=== PATIENT | female | born 1955 | race Caucasian/White ===

== ENCOUNTER 2019-01-05 08:33 | Inpatient (IN) | payer MEDICARE, OTHER ==
[~2019-01-05] VITALS: Ht 177.8 cm; Wt 102.6 kg
[~2019-01-05 08:33] MED LIST: ABAC300T2 PO; CIPR500T4 PO; DICL100G9 TP; HYDR200T39 PO; IBUP-734 PO; SOLI10TA2 PO; [UNRECOGNIZED DRUG - CODE] PO
[2019-01-05] MEDS ORDERED: CEFTRIAXONE 1 GM/50 ML (PMX) 50 ML IVPB STA (08:40)
[2019-01-05] MEDS ORDERED: ACETAMINOPHEN 325 MG TAB PO STA (08:40)
[2019-01-05] MEDS ORDERED: SODIUM CHLORIDE 0.9% 1L BAG IV* STA (08:58)
[2019-01-05] MEDS ORDERED: LAMI1TAB ORAL (10:14)
[2019-01-05] MEDS ORDERED: SULF-182 ORAL (10:14)
[2019-01-05] MEDS ORDERED: ACET500T98 ORAL (10:14)
[2019-01-05] MEDS ORDERED: [UNRECOGNIZED DRUG - CODE] PO (10:22)
[2019-01-05] MEDS ORDERED: FOLI-49 ORAL (10:23)
[2019-01-05] MEDS ORDERED: HYDR200T5 PO (10:23)
[2019-01-05] MEDS ORDERED: ACETAMINOPHEN 325 MG TAB PO PRN (11:30)
[2019-01-05] MEDS ORDERED: ONDANSETRON 4 MG INJ IV PRN (11:30)
--- NOTE | 2019-01-05 12:43 | ERD ---
ER Documentation Chief Complaint Chief Complaint fever , lt flank pain x 8 days , taking cipro and bactrium for uti HPI Patient is a 63-year-old female with no medical problems who presents with UTI. The patient has been on antibiotics for 3 days with Cipro and Bactrim. Her symptoms have been there for 8 days with burning with urination. She still having fevers however. Upon review of old medical records this is the patient's third visit to the ER since 2006. Her primary doctor is Dr. Ley. ROS All systems reviewed and are negative except as per history of present illness. Medications Home Meds Reported Medications Hydroxychloroquine Sulfate* (Plaquenil*) 200 Mg Tab, 200 MG PO BID, TAB 01/05/19 Folic Acid* (Folic Acid*) 1 Mg Tablet, 1 TAB ORAL DAILY 01/05/19 Abacavir* (Ziagen*) 300 Mg Tablet, 300 MG PO BID, TAB 01/05/19 Lamivudine-Zidovudine* (Lamivudine-Zidovudine*) 150-300 Mg Tablet, 1 TAB ORAL DA RANDALL 01/05/19 Sulfamethoxazole/Trimethoprim (Sulfamethoxazole-Tmp Ds Tablet) 1 Each Tablet, 1 TAB ORAL BID 01/05/19 Acetaminophen (Acetaminophen) 500 Mg Tablet, 1 TAB ORAL Q6H PRN for PAIN LEVEL 4-6 01/05/19 Ciprofloxacin Hcl* (Ciprofloxacin Hcl*) 500 Mg Tablet, 500 MG PO BID 07/31/13 Discontinued Reported Medications Ibuprofen (MOTRIN) 100 Mg/5 Ml Oral.susp, 800 MG PO TID 07/31/13 Solifenacin* (Vesicare*) 10 Mg Tablet, 10 MG PO DAILY 07/31/13 Diclofenac Sodium (Voltaren) 100 Gm Gel..gm., 100 GM TP BID 07/28/13 Abacavir* (Ziagen*) 300 Mg Tablet, 300 MG PO BID 07/28/13 Abacavir* (Abacavir*) 300 Mg Tablet, 300 MG PO BID 07/28/13 Hydroxychloroquine Sulfate* (Hydroxychloroquine Sulfate*) 200 Mg Tablet, 200 MG PO BID 07/28/13 Allergies Allergies: Coded Allergies: No Known Allergies (Verified Allergy, Unknown, 07/28/13) PMhx/Soc History of Surgery: Yes (BTL) Anesthesia Reaction: No Hx Neurological Disorder: No Hx Respiratory Disorders: No Hx Cardiac Disorders: No Hx Psychiatric Problems: No Hx Miscellaneous Medical Probl: No Hx Alcohol Use: No Hx Substance Use: No Hx Tobacco Use: No Smoking Status: Never smoker FmHx Family History: No diabetes Physical Exam Vitals Vital Signs Date Temp Pulse Resp B/P (MAP) Pulse Ox O2 O2 Flow FiO2 Time Delivery Rate 01/05/19 98.4 78 17 106/62 98 Room Air 12:21 (77) 01/05/19 101.0 09:09 01/05/19 Nasal 2 09:08 Cannula 01/05/19 101.1 96 18 131/63 98 08:37 (85) Physical Exam Const: No acute distress Head: Atraumatic Eyes: Normal Conjunctiva ENT: Normal External Ears, Nose and Mouth. Neck: Full range of motion. No meningismus. Resp: Clear to auscultation bilaterally Cardio: Regular rate and rhythm, no murmurs Abd: Soft, non tender, non distended. Normal bowel sounds Skin: No petechiae or rashes Back: No midline or flank tenderness Ext: No cyanosis, or edema Neur: Awake and alert Psych: Normal Mood and Affect Result Diagram: 01/05/19 0857 01/05/19 0957 Results 24 hrs Laboratory Tests Test 01/05/19 08:57 01/05/19 09:57 01/05/19 10:44 White Blood Count 12.6 10^3/ul Red Blood Count 2.75 10^6/ul Hemoglobin 10.6 g/dl Hematocrit 31.4 % Mean Corpuscular Volume 114.2 fl Mean Corpuscular Hemoglobin 38.5 pg Mean Corpuscular 33.8 g/dl Hemoglobin Concent Red Cell Distribution Width 13.1 % Platelet Count 362 10^3/UL Mean Platelet Volume 10.4 fl Immature Granulocytes % 1.300 % Neutrophils % 80.6 % Lymphocytes % 11.7 % Monocytes % 5.9 % Eosinophils % 0.2 % Basophils % 0.3 % Nucleated Red Blood Cells % 0.0 /100WBC Immature Granulocytes # 0.170 10^3/ul Neutrophils # 10.2 10^3/ul Lymphocytes # 1.5 10^3/ul Monocytes # 0.8 10^3/ul Eosinophils # 0.0 10^3/ul Basophils # 0.0 10^3/ul Nucleated Red Blood Cells # 0.0 10^3/ul Prothrombin Time 13.5 Sec Prothrombin Time Ratio 1.1 INR International 1.02 Normalized Ratio Activated Partial Thromboplast 34.1 Sec Time Urine Color YELLOW Urine Clarity CLEAR Urine pH 6.0 Urine Specific [place] 1.020 Urine Ketones NEGATIVE mg/dL Urine Nitrite NEGATIVE mg/dL Urine Bilirubin NEGATIVE mg/dL Urine Urobilinogen NEGATIVE mg/dL Urine Leukocyte Esterase NEGATIVE [place]/ul Urine Microscopic RBC 3 /HPF Urine Microscopic WBC 3 /HPF Urine Squamous Epithelial Cells FEW /HPF Urine Bacteria FEW /HPF Urine Mucus FEW /HPF Urine Hemoglobin NEGATIVE mg/dL Urine Glucose NEGATIVE mg/dL Urine Total Protein NEGATIVE mg/dl Sodium Level 135 mmol/L Potassium Level 4.6 mmol/L Chloride Level 103 mmol/L Carbon Dioxide Level 27 mmol/L Anion Gap 5 Blood Urea Nitrogen 10 mg/dl Creatinine 0.64 mg/dl Est Glomerular Filtrat > 60 mL/min Rate mL/min Glucose Level 105 mg/dl Lactic Acid Level 1.2 mmol/L 1.1 mmol/L Calcium Level 9.2 mg/dl Total Bilirubin 0.3 mg/dl Direct Bilirubin 0.00 mg/dl Indirect Bilirubin 0.3 mg/dl Aspartate Amino Transf (AST/SGOT) 40 IU/L Alanine 18 IU/L Aminotransferase (ALT/SGPT) Alkaline Phosphatase 252 IU/L Troponin I < 0.012 ng/ml Total Protein 7.9 g/dl Albumin 3.3 g/dl Globulin 4.60 g/dl Albumin/Globulin Ratio 0.71 Current Medications Medications Dose Sig/Terrance Start Time Status Last (Trade) Ordered Route PRN Stop Time Admin Dose Reason Admin 650 mg ONCE STAT 01/05/19 DC 01/05/19 Acetaminophen PO 08:40 01/05/19 09:09 (Tylenol 08:42 Tab) Ceftriaxone 50 ml @ ONCE STAT 01/05/19 DC 01/05/19 Sodium 100 mls/hr IVPB 08:40 01/05/19 09:10 09:09 Sodium 1,780 ml BOLUS OVER 2 01/05/19 DC 01/05/19 Chloride HOURS STAT 08:58 01/05/19 09:10 (NS) IV* 08:59 Ondansetron 4 mg BRIDGE ORDER 01/05/19 HCl (Zofran PRN IV 11:30 01/06/19 Inj) NAUSEA/VOMITI 11:29 NG 650 mg ER BRIDGE 01/05/19 Acetaminophen PRN PO 11:30 01/06/19 (Tylenol .MILD PAIN 11:29 Tab) 1-3 OR TEMP Procedures/MDM EKG read by me: Rate/Rhythm: Regular rate and rhythm at a normal rate Intervals: Normal Impression: No evidence of ischemia or arrhythmia Chest x-ray read by radiology. Sepsis Documentation: Patient's infectious symptoms have not stabilized and the patient is at risk of rapid decompensation. The patient will be admitted for careful hydration, antibiotic therapy, and infectious source control. SEVERE SEPSIS CRITERIA: Infectious source: Cystitis End organ damage indicated by: No endorgan damage SEPSIS MANAGEMENT Time of recognition of sepsis: 8:57 AM Time of recognition of severe sepsis: No severe sepsis at this time. Time of recognition of septic shock: No septic shock at this time. 3 HOUR BUNDLE Blood cultures x 2 before broad-spectrum antibiotics: Yes 30 ml/kg NS bolus please note ideal body weight was used as the patient has a BMI of 36. Initial lactate 1.2 Repeat lactate 1.1 SEPTIC SHOCK ASSESSMENT: No lactic acid > 4.0 No persistent hypotension (SBP < 90 or 40 mmHg drop, MAP < 65) despite 30 mL/kg IV fluid bolus VOLUME REASSESSMENT FOR SEPTIC SHOCK: No septic shock at this time PERSISTENT HYPOTENSION TREATMENT: Comfort care no Central line not Required Vasopressor started not required I considered further perfusion assessment with CVP measurement, SCVO2, bedside ultrasound volume assessment, passive leg raise, trial of further fluid bolus. And proceeded with 30 ml/kg fluid bolus of NSS, broad spectrum antibiotics, and admission. CRITICAL CARE Critical care time 35 minutes Emergent fluid management while maintaining close respiratory support. Provisi on of immediate and broad-spectrum antibiotic therapy. Simultaneous assessment for possible sources in order to direct targeted therapy. Consideration for invasive and chemical support to prevent cardiopulmonary collapse. Critical care time is independent of procedures performed. Departure Diagnosis: Primary Impression: Sepsis Sepsis type: sepsis due to unspecified organism Qualified Codes: A41.9 - Sepsis, unspecified organism Additional Impressions: Flank pain Cystitis Condition: ENMA Sanders MD Jan 05, 2019 12:43
[2019-01-05 12:55] VITALS: Ht 177.8 cm; Wt 102.6 kg
[2019-01-05 12:56] VITALS: BP 118/56; PULSE 79; RESP 18
[2019-01-05] MEDS ORDERED: ACETAMINOPHEN 500 MG TAB PO PRN (13:30)
--- NOTE | 2019-01-05 15:25 | HP ---
DATE OF ADMISSION: 01/05/2019 CHIEF COMPLAINT: Fever. HISTORY OF PRESENT ILLNESS: This is a 63-year-old female with a past medical history of arthritis wh o was being treated for an outpatient setting by her primary care physician, Dr. Ley, for UTI. The patient states she was diagnosed with UTI several days ago and was given 2 antibiotics, Bactrim and Cipro. The patient states, however, she continued to have ongoing fevers as well as a burning sensat ion. As a result, she came into [facility] Emergency Room for evaluation. Upon arrival, th e patient had a chest x-ray which showed no acute finding. Laboratory data was drawn, which showed e levated white count of 12.6. Urinalysis showed few bacteria, but no significant pyuria. The patient was given ceftriaxone and admitted to med/surg for evaluation. Upon my evaluation of the patient at this time, she denies any nausea, vomiting, any abdominal pain, any hemoptysis, hematemesis. No diarrhea. PAST MEDICAL HISTORY: Per patient, history of arthritis. The patient denies any history of CVA, hyp ertension. PAST SURGICAL HISTORY: Status post hysterectomy. FAMILY HISTORY: No family history of kidney disease. SOCIAL HISTORY: Does not drink, smoke or do drugs. MEDICATIONS: Have been reviewed. REVIEW OF SYSTEMS: A 14-point review of systems was conducted. Pertinent positives stated in HPI, o therwise negative. PHYSICAL EXAMINATION: VITAL SIGNS: Blood pressure is 118/56, respiration 18, pulse 79, temperature 101.1. HEENT: Head is normocephalic. NECK: Supple. HEART: Regular rate. LUNGS: Show diminished breath sounds at base. ABDOMEN: Soft, nontender to palpation without rebound or guarding. EXTREMITIES: Negative for clubbing, cyanosis. No edema. DERMATOLOGIC: No rashes. MUSCULOSKELETAL: No joint effusions. NEUROLOGIC: No focal deficits. LABORATORY DATA: Show BMP within normal limits. White count 12.6, hemoglobin 10.6, platelet count i s 362. Urinalysis was reviewed. ASSESSMENT AND PLAN: This is a 63-year-old female who presents with: 1. Fever. Etiology is presumed to be secondary to urinary tract infection. The patient's repeat ur inalysis, however, does not show any significant pyuria. Chest x-ray shows no active infiltrate. Pl an at this point is to get infectious disease consult for evaluation. We will check a procalcitonin level. We will check blood cultures and urine cultures. Continue current antibiotics and monitor cl osely. 2. History of arthritis. Continue antiinflammatory medications and monitor. 3. Anemia. We will check iron panel and ferritin level. 4. Gastrointestinal and deep venous thrombosis prophylaxis. The patient will be placed on Pepcid an d Lovenox. 5. General debility. We will place a physical therapy consult for evaluation. Please note, I spent an additional 30 minutes of [id number] time with the patient, discussing advan keila directives and code status. The patient is full code. Dictated By: CYNTHIA COLLINS/KERRI Conf#: [id number] DID#: [id number]
--- NOTE | 2019-01-05 18:28 | CONS ---
DATE OF ADMISSION: 01/05/2019 DATE OF CONSULTATION: 01/05/2019 TYPE OF CONSULTATION: Infectious disease. REASON FOR CONSULTATION: Antibiotic management. HISTORY OF PRESENT ILLNESS: Sushil Mckeon is a 63-year-old black female well known to me for many years who is HIV positive. She presented to the emergency room today with fever. Her past problems include: 1. HIV. 2. Arthritis, possibly rheumatoid. She is being cared for by the [facility] and she states that she was diagnosed with urinary trac t infection several days ago and was given Cipro and Bactrim. She continued to have ongoing fevers a s well as burning on urination. She came to the emergency room for evaluation. Her chest x-ray show ed no acute findings. Her white count on admission was 12.6. Urinalysis showed few bacteria. She w as started on ceftriaxone and admitted. Past problems include status post hysterectomy and arthritis as well as HIV. FAMILY HISTORY: Noncontributory. SOCIAL HISTORY: She does not smoke, drink or abuse drugs. ALLERGIES: NONE TO PENICILLIN, SULFA OR FOODS. MEDICATIONS: Per chart. REVIEW OF SYSTEMS: As per HPI. PHYSICAL EXAMINATION: GENERAL: She is a well-developed, well-nourished, obese black female who is alert, responsive, frien dly, in no acute distress. VITAL SIGNS: Stable. T-max of 101.1. SKIN: Without generalized rash. HEENT: Within normal limits. NECK: Supple. LYMPH NODES: None palpable. CHEST: Decreased breath sounds at the bases. HEART: Without murmur or gallop. ABDOMEN: Soft, nontender without organosplenomegaly or masses. EXTREMITIES: Without cyanosis, clubbing or edema. RECTAL AND GENITAL: Deferred. NEUROLOGICAL: No focal neurological abnormality. HOSPITAL COURSE: Her white count is 12.6. Her H and H is 10.6 and 31.4, platelet count of 362,000 w ith 81% neutrophils. BUN and creatinine is 10/0.64. Her alkaline phosphatase is elevated at 252. U rine is negative for leukocyte esterase. She has 3 white cells per high powered field. The patient was started on ceftriaxone at least in the emergency room. We are going to resume her Combivir and a bacavir which she has been on for quite a while. Her CD4 count when I saw her in 08/2018 was 645. H er viral load was up to 59 and we are going to do a genotype to rule out any mutations. However, cur rently her HIV is under good control, the source of her infectious disease issues. Her chest x-ray i s clear. Her urine is nondescript with only 3 white cells per high powered field; however, she had d ysuria at home and she probably has urinary tract infection. She was on Bactrim and Cipro. She was started on ceftriaxone in the emergency room. A procalcitonin level was done, blood cultures and uri ne cultures and I think we will keep her off antibiotics at this point. I will dictate my findings t o Dr. Ley and Dr. Astorga. Dictated By: BILL PAYAN MD, JD/KERRI Conf#: [id number] DIANA#: [id number] CC: CYNTHIA ASTORGA DO;*EndCC*
[2019-01-05 20:00] VITALS: BP 132/57; PULSE 94; RESP 17
[2019-01-05] MEDS: LAMIVUDINE/ZIDOVUDINE TAB PO SCH (20:55)
[2019-01-05] MEDS: FAMOTIDINE 20 MG TAB PO SCH (20:55)
[2019-01-05] MEDS: ABACAVIR 300 MG TAB PO SCH (20:58)
[2019-01-06 02:44] VITALS: BP 143/65; PULSE 87; RESP 19
[2019-01-06 08:00] VITALS: BP 110/58; PULSE 76; RESP 18
[2019-01-06] MEDS: ENOXAPARIN 40 MG/0.4 ML SYG SC SCH (09:00)
[2019-01-06] MEDS: LAMIVUDINE/ZIDOVUDINE TAB PO SCH ×2 (09:06→20:10)
[2019-01-06] MEDS: FAMOTIDINE 20 MG TAB PO SCH ×2 (09:07→20:10)
[2019-01-06] MEDS: CEFTRIAXONE 1 GM/50 ML (PMX) 50 ML IVPB SCH (09:57)
--- NOTE | 2019-01-06 10:01 | PN ---
DATE: 01/06/2019 SUBJECTIVE: The patient is stable, afebrile overnight. No other events noted. OBJECTIVE: VITAL SIGNS: Blood pressure is 110/58, pulse 76, respirations 18, temperature 99.9. HEENT: Head is normocephalic. NECK: Supple. HEART: Regular rate. LUNGS: Show diminished breath sounds at the base. ABDOMEN: Soft, nontender to palpation without rebound or guarding. EXTREMITIES: Negative for clubbing, cyanosis, no edema. DERMATOLOGIC: No rashes. MUSCULOSKELETAL: No joint effusion. NEUROLOGIC: No change in exam. MEDICATIONS: Reviewed. LABORATORY DATA: From 01/06/2019 was reviewed. The patient's cultures are pending. ASSESSMENT AND PLAN: 1. Fever, etiology is unknown, possible urinary tract infection. The patient has been seen by Infec tious Disease. Appreciate their recommendations and help with management. Cultures are pending. Th e patient is currently off antibiotic therapy. We will monitor closely. Follow up with ID for recom mendations. 2. History of arthritis. Continue current medical management. 3. HIV. Continue antiviral therapy. 4. Anemia. Monitor hemoglobin and hematocrit levels. 5. Gastrointestinal and deep vein thrombosis prophylaxis. Continue proton pump inhibitor and Loveno x. 6. General debility. Continue physical therapy. Dictated By: CYNTHIA ASTORGA DO NR/NTS Conf#: [id number] DID#: [id number] CC: CYNTHIA ASTORGA DO;*EndCC*
[2019-01-06] MEDS: ABACAVIR 300 MG TAB PO SCH ×2 (10:47→20:10)
[2019-01-06] MEDS: HYDROXYCHLOROQUINE 200 MG TAB PO SCH ×2 (13:05→20:10)
[2019-01-06 14:00] VITALS: BP 120/52; PULSE 82; RESP 18
--- NOTE | 2019-01-06 15:12 | CONS ---
Assessment/Plan Assessment/Plan Hospital Course (Demo Recall) Patient is alert feels good looks comfortable still with low-grade fevers. No dysuria no hematuria, no nausea vomiting diarrhea. T-max on admission yesterday 101.1 T-current 98.8. WBC 12 H&H 10 and 30.2 platelets 348. Neutrophils 78.4. BUN 9 creatinine 0.61 Microbiology: Blood cultures remain negative influenza swab negative, urine culture consistent with contaminant Chest x-ray on admission revealed no evidence of an acute cardiopulmonary process Antimicrobials: Patient is on IV Rocephin she is also getting HIV medications Physical examination: This is a morbidly obese well-developed elderly woman who is alert in no distress. Head atraumatic normocephalic sclera nonicteric. Bugle mucosa pink and moist. Neck is supple chest rise symmetrical. Breath sounds clear. Heart: S1-S2. Abdomen soft bowel sounds present. Extremities without cyanosis. Assessment: 1. Ongoing fevers of unknown etiology 2. HIV disease 3. Morbid obesity Plan: Patient is clinically stable we will will order CD4 count and 2D echo, repeat urine cultures, await for pro calcitonin level. She may require WBC labeled nuclear scan Consultation Date/Type/Reason Admit Date/Time Jan 05, 2019 at 11:20 Initial Consult Date Type of Consult id Date/Time of Note DATE: 01/06/19 TIME: 15:12 Exam/Review of Systems Exam Vitals Vital Signs Date Temp Pulse Resp B/P (MAP) Pulse Ox O2 O2 Flow FiO2 Time Delivery Rate 01/06/19 98.8 82 18 120/52 98 14:00 (74) 01/05/19 Room Air 12:56 01/05/19 2 09:08 Intake and Output 01/05/19 01/05/19 01/06/19 1414:59 22:59 06:59 IntakeIntake Total 400 ml BalanceBalance 400 ml Results Result Diagram: 01/06/19 0646 01/06/19 0646 Results 24hrs Laboratory Tests Test 01/06/19 06:46 White Blood Count 12.0 H Red Blood Count 2.59 L Hemoglobin 10.0 L Hematocrit 30.2 L Mean Corpuscular Volume 116.6 H Mean Corpuscular Hemoglobin 38.6 H Mean Corpuscular Hemoglobin Concent 33.1 Red Cell Distribution Width 13.3 Platelet Count 348 Mean Platelet Volume 10.4 Immature Granulocytes % 1.300 H Neutrophils % 78.4 H Lymphocytes % 12.5 L Monocytes % 7.0 Eosinophils % 0.4 Basophils % 0.4 Nucleated Red Blood Cells % 0.0 Immature Granulocytes # 0.150 H Neutrophils # 9.4 H Lymphocytes # 1.5 Monocytes # 0.8 Eosinophils # 0.1 Basophils # 0.1 Nucleated Red Blood Cells # 0.0 Sodium Level 138 Potassium Level 4.4 Chloride Level 101 Carbon Dioxide Level 28 Anion Gap 9 Blood Urea Nitrogen 9 Creatinine 0.61 Est Glomerular Filtrat Rate mL/min > 60 Glucose Level 99 Calcium Level 9.8 Phosphorus Level 4.2 Magnesium Level 2.2 Medications Medication Current Medications Acetaminophen (Tylenol Tab) 650 mg Q6H PRN PO PAIN LEVEL 4-6; Start 01/05/19 at 13:30 Famotidine (Pepcid) 20 mg BID PO Last administered on 01/06/19at 09:07; Admin Dose 20 MG; Start 01/05/19 at 21:00 Enoxaparin Sodium (Lovenox) 40 mg DAILY SC ; Start 01/06/19 at 09:00 Abacavir Sulfate (Ziagen) 300 mg BID PO Last administered on 01/06/19at 10:47; Admin Dose 300 MG; Start 01/05/19 at 21:00 Lamivudine/ Zidovudine (Combivir) 1 tab BID PO Last administered on 01/06/19at 09:06; Admin Dose 1 TAB; Start 01/05/19 at 21:00 Ceftriaxone Sodium 50 ml @ 100 mls/hr Q24H IVPB Last administered on 01/06/19at 09:57; Admin Dose 100 MLS/HR; Start 01/06/19 at 09:30 Hydroxychloroquine Sulfate (Plaquenil) 200 mg BID PO Last administered on 01/06/19at 13:05; Admin Dose 200 MG; Start 01/06/19 at 13:00 BRENDA LEE NP Jan 06, 2019 15:12
[2019-01-06 19:49] VITALS: BP 136/63; PULSE 90; RESP 18
[2019-01-07 00:10] VITALS: BP 142/63; PULSE 90; RESP 18
[2019-01-07 02:00] VITALS: BP 138/66; PULSE 81; RESP 17
[2019-01-07 08:00] VITALS: BP 120/56; PULSE 86; RESP 20
[2019-01-07] MEDS: ENOXAPARIN 40 MG/0.4 ML SYG SC SCH (09:00)
[2019-01-07] MEDS: FAMOTIDINE 20 MG TAB PO SCH ×2 (10:32→20:47)
[2019-01-07] MEDS: CEFTRIAXONE 1 GM/50 ML (PMX) 50 ML IVPB SCH (10:32)
[2019-01-07] MEDS: HYDROXYCHLOROQUINE 200 MG TAB PO SCH ×2 (10:32→20:47)
[2019-01-07] MEDS: LAMIVUDINE/ZIDOVUDINE TAB PO SCH ×2 (10:32→20:47)
[2019-01-07] MEDS: ABACAVIR 300 MG TAB PO SCH ×2 (11:37→20:47)
--- NOTE | 2019-01-07 13:38 | PN ---
DATE: 01/07/2019 SUBJECTIVE: The patient is stable. No fever overnight. No nausea. No vomiting. OBJECTIVE: VITAL SIGNS: Blood pressure is 120/56, respirations 20, pulse 86, temperature 98.6. HEENT: Head is normocephalic. NECK: Supple. HEART: Regular rate. LUNGS: Show diminished breath sounds at the base. ABDOMEN: Soft, nontender to palpation without rebound or guarding. EXTREMITIES: Negative for clubbing, cyanosis. No edema. DERMATOLOGIC: No rashes. MUSCULOSKELETAL: No joint effusion. NEUROLOGIC: No change in exam. MEDICATIONS: Have been reviewed. LABORATORY DATA: Have been reviewed. Cultures have been reviewed. ASSESSMENT AND PLAN: 1. Fever, unknown etiology. The patient's workup is ongoing per infectious disease. A 2D echo is p ending. Cultures have been reviewed and negative to date. Procalcitonin levels are pending. We bina l also check sed rate and CRP. The patient may require nuclear scan. Continue to monitor. Follow u p with infectious disease for evaluation. 2. Rheumatoid arthritis. Continue Plaquenil. 3. Human immunodeficiency virus. Continue antibiotic therapy per infectious disease. CD4 count is pending. 4. Anemia. Monitor hemoglobin and hematocrit levels. 5. Gastrointestinal and deep venous thrombosis prophylaxis. Continue PPI and Lovenox. 6. General debility. Continue physical therapy. Dictated By: CYNTHIA COLLINS/KERRI Conf#: [id number] DID#: [id number]
[2019-01-07 14:00] VITALS: BP 129/57; PULSE 64; RESP 18
--- NOTE | 2019-01-07 14:11 | CONS ---
Assessment/Plan Assessment/Plan Hospital Course (Demo Recall) Patient is alert and feels good had been afebrile since yesterday she is on Rocephin WBC went down to 10.5 platelets 434 neutrophils 75.3. CD4 476. BUN 9 creatinine 0.61 Microbiology: Blood cultures remain negative influenza swab negative, urine cul ture consistent with contaminant Chest x-ray on admission revealed no evidence of an acute cardiopulmonary process Antimicrobials: Patient is on IV Rocephin she is also getting HIV medications Physical examination: This is a morbidly obese well-developed elderly woman who is alert in no distress. Head atraumatic normocephalic sclera nonicteric. Bugle mucosa pink and moist. Neck is supple chest rise symmetrical. Breath sounds clear. Heart: S1-S2. Abdomen soft bowel sounds present. Extremities without cyanosis. Assessment: 1. Febrile illness with systemic inflammatory response syndrome 2. HIV disease, well controlled 3. Morbid obesity Plan: Remains stable, fevers resolving, continue present care antibiotics HAART Consultation Date/Type/Reason Admit Date/Time Jan 05, 2019 at 11:20 Initial Consult Date Type of Consult id Date/Time of Note DATE: 01/07/19 TIME: 14:10 Exam/Review of Systems Exam Vitals Vital Signs Date Temp Pulse Resp B/P (MAP) Pulse Ox O2 O2 Flow FiO2 Time Delivery Rate 01/07/19 98.6 86 20 120/56 96 08:00 (77) 01/05/19 Room Air 12:56 01/05/19 2 09:08 Intake and Output 01/06/19 01/06/19 01/07/19 1515:00 23:00 07:00 IntakeIntake Total 730 ml 400 ml BalanceBalance 730 ml 400 ml Results Result Diagram: 01/07/19 0616 01/06/19 0646 Results 24hrs Laboratory Tests Test 01/07/19 06:16 White Blood Count 10.5 Red Blood Count 2.74 L Hemoglobin 10.6 L Hematocrit 31.6 L Mean Corpuscular Volume 115.3 H Mean Corpuscular Hemoglobin 38.7 H Mean Corpuscular Hemoglobin Concent 33.5 Red Cell Distribution Width 12.9 Platelet Count 434 #H Mean Platelet Volume 9.6 Immature Granulocytes % 1.000 H Neutrophils % 75.3 Lymphocytes % 15.9 Monocytes % 6.4 Eosinophils % 1.0 Basophils % 0.4 Nucleated Red Blood Cells % 0.0 Immature Granulocytes # 0.110 H Neutrophils # 7.9 H Lymphocytes # 1.7 Monocytes # 0.7 Eosinophils # 0.1 Basophils # 0.0 Nucleated Red Blood Cells # 0.0 Medications Medication Current Medications Acetaminophen (Tylenol Tab) 650 mg Q6H PRN PO PAIN LEVEL 4-6; Start 01/05/19 at 13:30 Famotidine (Pepcid) 20 mg BID PO Last administered on 01/07/19 10:32; Admin Dose 20 MG; Start 01/05/19 at 21:00 Enoxaparin Sodium (Lovenox) 40 mg DAILY SC ; Start 01/06/19 at 09:00 Abacavir Sulfate (Ziagen) 300 mg BID PO Last administered on 01/07/19 11:37; Ad min Dose 300 MG; Start 01/05/19 at 21:00 Lamivudine/ Zidovudine (Combivir) 1 tab BID PO Last administered on 01/07/19 10:32; Admin Dose 1 TAB; Start 01/05/19 at 21:00 Ceftriaxone Sodium 50 ml @ 100 mls/hr Q24H IVPB Last administered on 01/07/19 10:32; Admin Dose 100 MLS/HR; Start 01/06/19 at 09:30 Hydroxychloroquine Sulfate (Plaquenil) 200 mg BID PO Last administered on 01/07/19 10:32; Admin Dose 200 MG; Start 01/06/19 at 13:00 BRENDA LEE NP Jan 07, 2019 14:11
[2019-01-07 20:00] VITALS: BP 128/60; PULSE 84; RESP 18
[2019-01-08 02:00] VITALS: BP 105/54; PULSE 66; RESP 18
[2019-01-08 08:21] VITALS: BP 118/53; PULSE 83; RESP 18
[2019-01-08] MEDS: FAMOTIDINE 20 MG TAB PO SCH (08:38)
[2019-01-08] MEDS: HYDROXYCHLOROQUINE 200 MG TAB PO SCH (08:38)
[2019-01-08] MEDS: LAMIVUDINE/ZIDOVUDINE TAB PO SCH (08:38)
[2019-01-08] MEDS: ABACAVIR 300 MG TAB PO SCH (08:38)
[2019-01-08] MEDS: ENOXAPARIN 40 MG/0.4 ML SYG SC SCH (08:39)
--- NOTE | 2019-01-08 08:45 | PN ---
DATE: 01/08/2019 SUBJECTIVE: The patient is stable, no events overnight. The patient is feeling better. OBJECTIVE: VITAL SIGNS: Blood pressure is 118/53, pulse 83, respirations 18, temperature 98.0. HEENT: Head is normocephalic. NECK: Supple. HEART: Regular rate. LUNGS: Show diminished breath sounds at the base. ABDOMEN: Soft, nontender to palpation without rebound or guarding. EXTREMITIES: Negative for clubbing, cyanosis, no edema. DERMATOLOGIC: No rashes. MUSCULOSKELETAL: No joint effusion. NEUROLOGIC: No change in exam. MEDICATIONS: Reviewed. LABORATORY DATA: Has been reviewed. ASSESSMENT AND PLAN: 1. Fever, etiology is unknown. Workup is ongoing per infectious disease. The patient is status pos t 2D echo; results are pending. Patient's cultures have been negative to date. Continue antibiotic therapy. 2. Rheumatoid arthritis. Continue Plaquenil. 3. HIV. Continue antiviral therapy. 4. Anemia. Continue to monitor hemoglobin and hematocrit levels. 5. General debility. Continue physical therapy. 6. Gastrointestinal and deep venous thrombosis prophylaxis. Continue proton pump inhibitor and Love nox. Dictated By: CYNTHIA ASTORGA DO NR/NTS Conf#: [id number] DID#: [id number] CC: CYNTHIA ASTORGA DO;*EndCC*
[2019-01-08] MEDS: CEFTRIAXONE 1 GM/50 ML (PMX) 50 ML IVPB SCH (09:14)
--- NOTE | 2019-01-08 12:32 | CONS ---
Assessment/Plan Assessment/Plan Hospital Course (Demo Recall) No fevers for 48 hrs, looks comfortable Microbiology: Blood cultures remain negative influenza swab negative, urine culture consistent with contaminant Chest x-ray on admission revealed no evidence of an acute cardiopulmonary process Antimicrobials: Patient is on IV Rocephin she is also getting HIV medications Physical examination: This is a morbidly obese well-developed elderly woman who is alert in no distress. Head atraumatic normocephalic sclera nonicteric. Bugle mucosa pink and moist. Neck is supple chest rise symmetrical. Breath sounds clear. Heart: S1-S2. Abdomen soft bowel sounds present. Extremities without cyanosis. Assessment: 1. Febrile illness with systemic inflammatory response syndrome 2. HIV disease, well controlled 3. Morbid obesity Plan: Remains stable, ok dc off abx Consultation Date/Type/Reason Admit Date/Time Jan 05, 2019 at 11:20 Initial Consult Date Type of Consult id Date/Time of Note DATE: 01/08/19 TIME: 12:31 Exam/Review of Systems Exam Vitals Vital Signs Date Temp Pulse Resp B/P (MAP) Pulse Ox O2 O2 Flow FiO2 Time Delivery Rate 01/08/19 98.0 83 18 118/53 96 08:21 (74) 01/05/19 Room Air 12:56 01/05/19 2 09:08 Intake and Output 01/07/19 01/07/19 01/08/19 1515:00 23:00 07:00 IntakeIntake Total 400 ml 50 ml BalanceBalance 400 ml 50 ml Results Result Diagram: 01/07/19 0616 01/06/19 0646 Medications Medication Current Medications Acetaminophen (Tylenol Tab) 650 mg Q6H PRN PO PAIN LEVEL 4-6; Start 01/05/19 at 13:30 Famotidine (Pepcid) 20 mg BID PO Last administered on 01/08/19at 08:38; Admin Dose 20 MG; Start 01/05/19 at 21:00 Enoxaparin Sodium (Lovenox) 40 mg DAILY SC ; Start 01/06/19 at 09:00 Abacavir Sulfate (Ziagen) 300 mg BID PO Last administered on 01/08/19at 08:38; Admin Dose 300 MG; Start 01/05/19 at 21:00 Lamivudine/ Zidovudine (Combivir) 1 tab BID PO Last administered on 01/08/19at 08:38; Admin Dose 1 TAB; Start 01/05/19 at 21:00 Ceftriaxone Sodium 50 ml @ 100 mls/hr Q24H IVPB Last administered on 01/08/19 09:14; Admin Dose 100 MLS/HR; Start 01/06/19 at 09:30 Hydroxychloroquine Sulfate (Plaquenil) 200 mg BID PO Last administered on 9at 08:38; Admin Dose 200 MG; Start 01/06/19 at 13:00 BRENDA LEE NP Jan 08, 2019 12:32
[2019-01-08 13:51] VITALS: BP 120/57; PULSE 80; RESP 19
--- NOTE | 2019-01-08 16:28 | RADRPT ---
Echocardiogram Report Patient Name: Teodoro ONTIVEROS ID: [id number] : 1955 (63y 6m)Study Date: 01/07/2019 7:21:55 AM Gender: FAccession #: [id number] Tech: LE Location: Ref.Physician: BRENDA LEE Height(Cm): BSA: Weight(Kg): Quality: GoodAccount #: Procedures: Echocardiographic Report: Transthoracic echocardiogram with complete 2D, M-Mode, and doppler examination. Indications: R/O Endocarditis. Measurements: 2D/M Mode Doppler Measurement Value Normal Range Measurement Value Normal Range IVS/LVPW 2D 1.0 ratio SUMANTH Vmax 2.4 [ 2.0 - 4.0 ] cm2 LVOT Diam 2.0 [ 2.1 - 2.5 ] cm AV Mean Dillon 1.1 [ 70.0 - 90.0 ] cm/sec LVOT Area 3.1 cm2 AV Mean PG 5.0 [ 2.0 - 4.0 ] mmHg AV Peak Dillon 1.5 [ 100.0 - 170.0 ] cm/sec AV Peak PG 9.0 [ 2.0 - 9.0 ] mmHg AV VTI 30.0 cm LVOT Peak Dillon 1.1 [ 70.0 - 110.0 ] cm/sec LVOT Peak PG 5.0 [ 2.0 - 6.0 ] mmHg MV E Peak Dillon 0.7 [ 60.0 - 130.0 ] cm/sec MV A Peak Dillon 1.0 [ 100.0 - 120.0 ] cm/sec MV E/A 0.7 [ 0.8 - 1.5 ] ratio MV Decel Time 257 [ 104 - 258 ] msec Lat E` Dillon 0.1 [ 10.0 - 15.0 ] cm/sec Med E` Dillon 0.1 cm/sec MV E/A 0.7 [ 0.8 - 1.5 ] ratio TR Peak Dillon 3.0 [ 100.0 - 280.0 ] cm/sec TR Peak PG 37.0 mmHg PV Peak Dillon 0.9 [ 40.0 - 80.0 ] cm/sec PV Peak PG 3.0 mmHg Findings: Left Ventricle: Normal left ventricular systolic function. Normal left ventricular cavity size. Mild concentric left ventricular hypertrophy. Ejection fraction is visually estimated at 60 %. Tissue Doppler/Mitral Doppler indices are consistent with impaired relaxation (Stage I diastolic dysfunction). Right Ventricle: Normal right ventricular size. Normal right ventricular systolic function. Left Atrium: There is mild enlargement of left atrium. Right Atrium: The right atrium is normal in size. Mitral Valve: Mild mitral annular calcification. Trace mitral regurgitation. Aortic Valve: Normal appearance of the aortic valve. No significant aortic stenosis or insufficiency. Tricuspid Valve: Normal appearance of the tricuspid valve. Estimated peak PA systolic pressure 35 mmHg. There is mild tricuspid regurgitation. Pulmonic Valve: Normal pulmonic valve appearance. There is trace pulmonic regurgitation. Pericardium: Normal pericardium with no significant pericardial effusion. Aorta: Normal aortic root. IVC: Normal size and normal respiratory collapse consistent with normal right atrial pressure. Conclusions: Normal left ventricular systolic function. Normal left ventricular cavity size. Mild concentric left ventricular hypertrophy. Ejection fraction is visually estimated at 60 %. Tissue Doppler/Mitral Doppler indices are consistent with impaired relaxation (Stage I diastolic dysfunction). Normal right ventricular size. Normal right ventricular systolic function. There is mild enlargement of left atrium. The right atrium is normal in size. Estimated peak PA systolic pressure 35 mmHg. There is mild tricuspid regurgitation. No significant valvular stenosis or regurgitation seen of remaining visualized valves. Normal pericardium with no significant pericardial effusion. Electronically Signed By: Travis Merchant 2019-01-08 16:28:14 PDT
== END 2019-01-08 14:55 | disposition home or self-care (01) | DRG 975 ==
LOC: E/R 08:33 → 5EC 11:20 → PP2 01-06 23:55
PROVIDERS: ADMIT Internal Medicine; ATTEND Internal Medicine
DX: B20 Human immunodeficiency virus [HIV] disease (principal); A41.9 Sepsis, unspecified organism; N39.0 Urinary tract infection, site not specified; D64.9 Anemia, unspecified; R53.81 Other malaise; M19.90 Unspecified osteoarthritis, unspecified site; Z68.32 Body mass index [BMI] 32.0-32.9, adult; E66.01 Morbid (severe) obesity due to excess calories
CPT/HCPCS: 36415; 71045; 80048; 80053; 81003; 83605; 83735; 84100; 84145; 84484; 85025; 85610; 85730; 86360; 87086; 87400; 93005; 93306; 96374; J0696; J1650; J7030

== ENCOUNTER 2019-03-06 13:06 | Emergency (ER) | payer MEDICARE, OTHER ==
[~2019-03-06] VITALS: Ht 180.3 cm; Wt 99.2 kg
[~2019-03-06 13:06] MED LIST changes: -ABAC300T2 PO; +ACET500T98 ORAL; -CIPR500T4 PO; -DICL100G9 TP; +FOLI-49 ORAL; -HYDR200T39 PO; +HYDR200T5 PO; -IBUP-734 PO; +LAMI1TAB ORAL; -SOLI10TA2 PO
[2019-03-06 13:15] VITALS: Ht 180.3 cm; Wt 99.2 kg
--- NOTE | 2019-03-06 13:46 | ERD ---
ER Documentation Chief Complaint Chief Complaint Flank pain with fever started today HPI 63-year-old female with a history of HIV and rheumatoid arthritis presenting with left flank pain that started today. The pain is mild, aching, nonradiating, without associated hematuria or dysuria. She states that she felt somewhat feverish today but denies any documented fevers. No nausea or vomiting. No chest pain or shortness of breath. She was hospitalized a few weeks ago for a UTI that was severe and she is afraid that she has a UTI again. ROS All systems reviewed and are negative except as per history of present illness. Medications Home Meds Reported Medications Hydroxychloroquine Sulfate* (Plaquenil*) 200 Mg Tab, 200 MG PO BID, TAB 01/05/19 Folic Acid* (Folic Acid*) 1 Mg Tablet, 1 TAB ORAL DAILY 01/05/19 Abacavir* (Ziagen*) 300 Mg Tablet, 300 MG PO BID, TAB 01/05/19 Lamivudine-Zidovudine* (Lamivudine-Zidovudine*) 150-300 Mg Tablet, 1 TAB ORAL DAILY 01/05/19 Acetaminophen (Acetaminophen) 500 Mg Tablet, 1 TAB ORAL Q6H PRN for PAIN LEVEL 4-6 01/05/19 Allergies Allergies: Coded Allergies: No Known Allergies (Verified Allergy, Unknown, 03/06/19) PMhx/Soc History of Surgery: Yes (hestrctoectomy) Anesthesia Reaction: No Hx Neurological Disorder: No Hx Respiratory Disorders: No Hx Cardiac Disorders: No Hx Psychiatric Problems: No Hx Miscellaneous Medical Probl: Yes (HIV, rheumatoid arthritis, UTI) Hx Alcohol Use: No Hx Substance Use: No Hx Tobacco Use: No FmHx Family History: No diabetes Physical Exam Vitals Vital Signs Date Temp Pulse Resp B/P (MAP) Pulse Ox O2 O2 Flow FiO2 Time Delivery Rate 03/06/19 99.2 75 18 115/59 97 Room Air 16:57 (77) 03/06/19 99.6 96 18 161/68 97 13:15 (99) Physical Exam Const: No acute distress Head: Atraumatic Eyes: Normal Conjunctiva ENT: Normal External Ears, Nose and Mouth. Neck: Full range of motion. No meningismus. Resp: Clear to auscultation bilaterally Cardio: Regular rate and rhythm, no murmurs. 2+ distal pulses Abd: Soft, non tender, non distended. No pulsatile mass. Normal bowel sounds Skin: No petechiae or rashes Back: No midline or flank tenderness Ext: No cyanosis, or edema Neur: Awake and alert Psych: Normal Mood and Affect Result Diagram: 03/06/19 1341 03/06/19 1341 Results 24 hrs Laboratory Tests Test 03/06/19 13:41 03/06/19 16:13 White Blood Count 7.9 10^3/ul Red Blood Count 2.71 10^6/ul Hemoglobin 10.3 g/dl Hematocrit 30.4 % Mean Corpuscular Volume 112.2 fl Mean Corpuscular Hemoglobin 38.0 pg Mean Corpuscular Hemoglobin Concent 33.9 g/dl Red Cell Distribution Width 13.6 % Platelet Count 324 10^3/UL Mean Platelet Volume 9.9 fl Immature Granulocytes % 0.400 % Neutrophils % 70.1 % Lymphocytes % 20.5 % Monocytes % 7.8 % Eosinophils % 0.8 % Basophils % 0.4 % Nucleated Red Blood Cells % 0.0 /100WBC Immature Granulocytes # 0.030 10^3/ul Neutrophils # 5.6 10^3/ul Lymphocytes # 1.6 10^3/ul Monocytes # 0.6 10^3/ul Eosinophils # 0.1 10^3/ul Basophils # 0.0 10^3/ul Nucleated Red Blood Cells # 0.0 10^3/ul Sodium Level 140 mmol/L Potassium Level 3.8 mmol/L Chloride Level 105 mmol/L Carbon Dioxide Level 27 mmol/L Anion Gap 8 Blood Urea Nitrogen 9 mg/dl Creatinine 0.49 mg/dl Est Glomerular Filtrat Rate mL/min > 60 mL/min Glucose Level 114 mg/dl Calcium Level 9.7 mg/dl Total Bilirubin 0.4 mg/dl Direct Bilirubin 0.00 mg/dl Indirect Bilirubin 0.4 mg/dl Aspartate Amino Transf (AST/SGOT) 76 IU/L Alanine Aminotransferase (ALT/SGPT) 74 IU/L Alkaline Phosphatase 367 IU/L Total Protein 9.2 g/dl Albumin 3.9 g/dl Globulin 5.30 g/dl Albumin/Globulin Ratio 0.73 Lipase 115 U/L Urine Color YELLOW Urine Clarity CLEAR Urine pH 7.0 Urine Specific [place] 1.005 Urine Ketones NEGATIVE mg/dL Urine Nitrite NEGATIVE mg/dL Urine Bilirubin NEGATIVE mg/dL Urine Urobilinogen NEGATIVE mg/dL Urine Leukocyte Esterase NEGATIVE [place]/ul Urine Microscopic RBC 1 /HPF Urine Microscopic WBC 0 /HPF Urine Hemoglobin 1+ mg/dL Urine Glucose NEGATIVE mg/dL Urine Total Protein NEGATIVE mg/dl Procedures/MDM EMERGENT LABS AND DIAGNOSTIC STUDIES: Lab Results above were reviewed and interpreted by me. CBC: Mild anemia, no evidence of acute infection CMP: Mild transaminitis and elevated alk phos, unclear etiology. No evidence of clinically significant electrolyte abnormality, acidosis, renal failure, hypoglycemia Lipase: no evidence of pancreatitis UA: Microscopic hematuria. No evidence of infection Initial Nursing notes reviewed. Previous Medical Records requested via the Electronic Health Record. EMERGENCY DEPARTMENT COURSE / MEDICAL DECISION MAKING: Patient presents with left flank pain and normal physical exam. Vitals were notable for mild tachycardia. This self resolved without intervention. I have a low suspicion for lower lobe pneumonia, pulmonary embolism, aortic dissection, AAA. UA did not show evidence of infection. I have a low suspicion for pyelonephritis or kidney stone. Patient's work-up did not reveal any significant abnormalities other than mild transaminitis but she has no abdominal pain or tenderness. I feel she is stable for discharge with continued outpatient follow-up with her primary care doctor. Return precautions were given. Patient's blood pressure was elevated (>120/80) but appears stable without evidence of hypertensive emergency or urgency. The patient was counseled about the risks of hypertension and urged to pursue outpatient monitoring and therapy within a week with their primary care physician. Departure Diagnosis: Primary Impression: Acute left flank pain Additional Impression: Transaminitis Condition: Stable KARRIE OORZCO MD March 06, 2019 13:45
[2019-03-06 16:57] VITALS: BP 115/59; PULSE 75; RESP 18
== END 2019-03-06 17:20 | disposition home or self-care (01) ==
LOC: E/R 13:06
DX: R10.9 Unspecified abdominal pain (principal); R74.0 Nonspecific elevation of levels of transaminase and lactic acid dehydrogenase [LDH]; Z21 Asymptomatic human immunodeficiency virus [HIV] infection status
CPT/HCPCS: 36415; 80053; 81001; 83690; 85025; 99283